=== PATIENT | female | born 1950 | race Caucasian/White ===

== ENCOUNTER 2016-02-08 00:29 | Inpatient (IN) | payer MEDICARE, OTHER ==
[~2016-02-08] VITALS: Ht 168.9 cm; Wt 78.5 kg
[~2016-02-08 00:29] MED LIST: ADVAIR 250/501 DISK INH; ADVIL PM CAPLET1 TAB PO; ALEVE220 MG; ARAVA10 MG PO; AUGMENTIN 500-11 TA1 PO; AUGMENTIN 875-11 TAB PO; BENADRYL25 MG PO; BENZONATATE200 MG PO; BROVANA15 MCG/2 M INH; CELEXA20 MG PO; CITRACAL + D CA1 TAB PO; DURAGESIC1 PATCH .7 TRANSDERM; FLORASTOR250 MG PO; FLOVENT DI50 MCG/DIS; FLUTICASONE PRO16 GM NASAL; GABAPENTIN100 MG PO; HYDROCHLOROTH12.5 M1 PO; HYDROCODON-ACE1 EAC7 PO; HYDROCODONE-APA1 TAB PO; IPRAT-ALBUT 0.5-3 ML UPD; LEVAQUIN500 MG PO; LISINOPRIL10 MG PO; LORTAB 5/500 TA1 TA2 PO; MEDROL DOSE PACK4 MG PO; MUCINEX600 MG PO; NEXIUM40 MG PO; NORVASC10 MG PO; OS-CAL 500+D TA1 TAB PO; PEPCID40 MG PO; PHENERGAN25 M1 PO; PLAQUENIL200 MG PO; PROMETHAZINE W473 M1 PO; PULMICORT0.5 MG/21 UPD; SINGULAIR10 MG PO; SPIRIVA18 MCG INH; STERAPRED DS 1210 MG PO; TYLENOL PM1 TAB PO; VENTOLIN HFA18 GM INH; XARELTO10 MG PO; XARELTO15 MG PO; ZOFRAN4 MG PO
[2016-02-08 01:41] LABS: HEMOGLOBIN 12.2 g/dL (12-16); MCHC 33.9 g/dL (31.0-37.0); MCV 94.5 fL (80.0-100.0); MEAN PLATELET VOLUME 9.1 fL (7.4-10.4); NEUTROPHILS 76.5 % (40-80); RBC 3.81 10x6/uL (4.00-5.40); RDW 15.2 % (11.5-14.5); WBC 7.7 10x3/uL (4.8-10.8)
[2016-02-08 01:46] LABS: PLATELET COUNT 161 10x3/uL (130-400)
[2016-02-08 01:53] LABS: BILIRUBIN - TOTAL 0.7 mg/dL (0.2-1.3); CALCIUM 7.6 mg/dL (8.5-10.1); CARBON DIOXIDE 24.7 mmol/L (21.0-32.0); CREATININE - SERUM 0.9 mg/dL (0.6-1.3); MAGNESIUM - SERUM 1.3 mg/dL (1.8-2.4); POTASSIUM - SERUM 3.7 mmol/L (3.5-5.1)
[2016-02-08 02:52] LABS: APPEARANCE HAZY (CLEAR); BILIRUBIN NEGATIVE (NEGATIVE); COLOR YELLOW (YELLOW); GLUCOSE NEGATIVE (NEGATIVE); KETONE NEGATIVE (NEGATIVE); LEUKOCYTE ESTERASE NEGATIVE (NEGATIVE); NITRITE NEGATIVE (NEGATIVE); PROTEIN NEGATIVE (NEGATIVE); UROBILINOGEN NORMAL (NORMAL)
[2016-02-08 08:21] VITALS: BP 118/77
[2016-02-08] MEDS ORDERED: CELEXA20 MG PO (09:33)
[2016-02-08] MEDS ORDERED: NEURONTIN600 MG PO (09:33)
[2016-02-08] MEDS ORDERED: ARAVA10 MG PO (09:34)
[2016-02-08] MEDS ORDERED: PLAQUENIL200 MG PO (09:34)
[2016-02-08] MEDS ORDERED: NEXIUM40 MG PO (09:35)
[2016-02-08] MEDS ORDERED: VENTOLIN HFA18 GM INH (09:35)
[2016-02-08] MEDS ORDERED: ADVAIR 250/501 DISK INH (09:36)
[2016-02-08] MEDS ORDERED: FLOVENT DI50 MCG/DIS INH (09:36)
[2016-02-08] MEDS ORDERED: HYDROCODONE-APA1 TAB PO (09:37)
[2016-02-08 12:45] VITALS: BP 114/63
--- NOTE | 2016-02-08 14:34 | NUR ---
Patient Name: OLMAN VALDIVIA Admission Status: ER Accout number: [id number] Admission Date: 02-08-2016 : 1950 Admission Diagnosis: Attending: MOHAN Current LOS: 1 Anticipated DC Date: 02-11-2016 Planned Disposition: Home Primary Insurance: MEDICARE A & B Discharge Planning Comments: CM MET WITH PATIENT REGARDING D/C NEEDS AND PLANS. PATIENT STATED SHE LIVES WITH HER SPOUSE (JAYNA) AND HE WILL TRANSPORT HER HOME AT DISCHARGE. PATIENT STATED THERE AR NO STEPS OR STAIRS AT HIS HOME. PATIENT STATED SHE IS INDEPENDENT WITH HER CARE AND HAS A WALKER, CRUTCHES, SHOWER CHAIR, AND BS COMMODE AT HOME IF NEEDED. PATIENTS PCP IS DR. FORRESTER AND HER PHARMACY IS [facility] ON [address]. PATINT STATED SHE DOES NOT NEED HOME HEALTH. CM WILL CONTINUE TO FOLLOW PATIENT WITH DC NEEDS AND PLANS. PCP DR. FORRESTER [facility] ON [address]---[phone] JAYNA (SPOUSE) [phone] Automotive Detailer: Pamela Langston Is the patient Alert and Oriented? Yes 0 * How many steps to enter\exit or inside your home? 0 0 * PCP DR. FORRESTER 0 * Pharmacy [facility] ON [address] 0 * Preadmission Environment Home with Family 0 * ADLs Independent 0 * Equipment Bedside Commode Crutch Shower Chair Walker 0 * List name and contact numbers for known caregivers / representatives who currently or will assist patient after discharge: JAYNA (SPOUSE) [phone] 0 * Community resources currently utilized None 0 * Additional services required to return to the preadmission environment? Yes 0 * Can the patient safely return to the preadmission environment? Yes 0 * Has this patient been hospitalized within the prior 30 days at any hospital? No 0
[2016-02-08 15:48] VITALS: Ht 168.9 cm; Wt 78.5 kg
[2016-02-08 16:30] VITALS: BP 115/63
--- NOTE | 2016-02-08 18:49 | NUR ---
PATIENT IS ALERT AND ORIENTED. ON DROPLET ISOLATION. PATIENT ACCOMANIED BY HUSBANDS. NO NEEDS NOTED.
[2016-02-08 19:00] VITALS: BP 103/60
--- NOTE | 2016-02-08 19:20 | NUR ---
PATIENT SITTING UP IN BED WATCHING TV. NO SIGNS OF DISTRESS NOTED. RESPIRATIONS EVEN AND UNLABORED. DENIES ANY NEEDS AT THIS TIME. BED LOW. CALL LIGHT IN REACH
[2016-02-09] VITALS: BP 113/62
--- NOTE | 2016-02-09 01:15 | NUR ---
PT REMAINS IN CONTACT ISOLATION FOR THE FLU. PT IS UP AD FATMATA AND SELF POSITIONS FOR COMFORT. IV TO LEFT AC SALINE LOCKED. REFUSES SCD'S. CALL LIGHT IN REACH, WILL CONTINUE WITH PLAN OF CARE.
[2016-02-09 04:00] VITALS: BP 105/57
[2016-02-09 05:49] LABS: BASOPHILS 0.3 % (0.0-2.0); EOSINOPHILS 0.3 % (0-7); HEMATOCRIT 31.4 % (36.0-48.0); HEMOGLOBIN 10.7 g/dL (12-16); IMMATURE GRANULOCYTES 0.1 % (0-5); LYMPHOCYTES 15.3 % (15-50); MCH 31.8 pg (26.0-34.0); MCHC 34.1 g/dL (31.0-37.0); MCV 93.5 fL (80.0-100.0); MEAN PLATELET VOLUME 9.5 fL (7.4-10.4); MONOCYTES 9.2 % (2-11); NEUTROPHILS 74.8 % (40-80); RBC 3.36 10x6/uL (4.00-5.40); RDW 14.2 % (11.5-14.5); WBC 8.8 10x3/uL (4.8-10.8)
[2016-02-09 05:56] LABS: PLATELET COUNT 111 10x3/uL (130-400)
[2016-02-09 06:04] LABS: ALBUMIN 2.6 g/dL (3.4-5.0); ALKALINE PHOSPHATASE 146 U/L (46-116); ALT (SGPT) 92 U/L (10-68); BILIRUBIN - TOTAL 0.78 mg/dL (0.2-1.3); CALC OSMOLALITY 272 mosm/kg (275-300); CALCIUM 8.4 mg/dL (8.5-10.1); CARBON DIOXIDE 25.4 mmol/L (21.0-32.0); CHLORIDE - SERUM 105 mmol/L (98-107); CREATININE - SERUM 0.8 mg/dL (0.6-1.3); GLUCOSE 100 mg/dL (74-106); POTASSIUM - SERUM 3.8 mmol/L (3.5-5.1); PROTEIN - SERUM 5.9 g/dL (6.4-8.2); SODIUM 137 mmol/L (136-145); UREA NITROGEN 11 mg/dL (7-18); eGFR NON AFRICAN AMERICAN 76 mL/min (90-120)
--- NOTE | 2016-02-09 08:00 | NUR ---
Received patient up in her room, alert and oriented times three, verbalized name and . Contact isolation precautions in place, droplett precautions. Verbalized no complaints. Respirations easy, afebrile.
[2016-02-09 08:30] VITALS: BP 106/63
[2016-02-09 11:52] VITALS: BP 130/66
--- NOTE | 2016-02-09 13:52 | NUR ---
Up adlib in room, no distress.
[2016-02-09 15:55] VITALS: BP 131/81
--- NOTE | 2016-02-09 20:45 | NUR ---
ASSESSMENT COMPLETED, NO ACUTE DISTRESS NOTED, DENIES NEEDS, REFUSES SCD'S, STATES "THEY MAKE MY LEGS SWELL", SR'S UP X2, CL IN REACH, DROPLET PRECAUTIONS IN PLACE, WILL MONITOR
--- NOTE | 2016-02-09 22:34 | NUR ---
NORCO GIVEN PER MAR ALONG WITH ROUTINE MEDS FOR GENERALIZED PAIN, LEI WELL, DENEIES FURTHER NEEDS, CL IN REACH
[2016-02-10 05:56] LABS: BASOPHILS 0.5 % (0.0-2.0); EOSINOPHILS 3.8 % (0-7); HEMATOCRIT 32.1 % (36.0-48.0); HEMOGLOBIN 10.7 g/dL (12-16); IMMATURE GRANULOCYTES 0.2 % (0-5); MCH 31.5 pg (26.0-34.0); MCHC 33.3 g/dL (31.0-37.0); MCV 94.4 fL (80.0-100.0); MEAN PLATELET VOLUME 10.1 fL (7.4-10.4); MONOCYTES 10.3 % (2-11); NEUTROPHILS 53.2 % (40-80); PLATELET COUNT 132 10x3/uL (130-400); RDW 14.2 % (11.5-14.5)
[2016-02-10 06:14] LABS: WBC 6.3 10x3/uL (4.8-10.8)
[2016-02-10 06:48] LABS: ALBUMIN 2.5 g/dL (3.4-5.0); ALKALINE PHOSPHATASE 125 U/L (46-116); ALT (SGPT) 68 U/L (10-68); CALC OSMOLALITY 280 mosm/kg (275-300); CALCIUM 8.4 mg/dL (8.5-10.1); CARBON DIOXIDE 25.9 mmol/L (21.0-32.0); CHLORIDE - SERUM 107 mmol/L (98-107); CREATININE - SERUM 0.8 mg/dL (0.6-1.3); GLUCOSE 100 mg/dL (74-106); POTASSIUM - SERUM 3.6 mmol/L (3.5-5.1); PROTEIN - SERUM 5.9 g/dL (6.4-8.2); SODIUM 141 mmol/L (136-145); UREA NITROGEN 12 mg/dL (7-18); eGFR NON AFRICAN AMERICAN 76 mL/min (90-120)
[2016-02-10 08:19] VITALS: BP 111/84
[2016-02-10 12:27] VITALS: BP 138/85
[2016-02-10 16:18] VITALS: BP 128/79
[2016-02-10 19:00] VITALS: BP 118/67
--- NOTE | 2016-02-10 20:35 | NUR ---
ASSESSMENT COMPLETED, NO ACUTE DISTRESS NOTED, DENIES NEEDS AT THIS TIME, DROPLET PRECAUTIONS IN PLACE, SR'S UP X2, CL IN REACH, WILL MONITOR
--- NOTE | 2016-02-10 21:27 | NUR ---
HYDROCODONE GIVEN FOR C/O PAIN 08/15 ALONG WITH ROUTINE MEDS, LEI WELL, DENIES OTHER NEEDS AT THIS TIME, CL IN REACH
[2016-02-11] VITALS: BP 122/75
--- NOTE | 2016-02-11 01:38 | NUR ---
RESTING WITH EYES CLOSED, RESP WITH EASE, NO DISTRESS NOTED, DROPLET PRECAUTIONS IN PLACE, CL IN REACH
--- NOTE | 2016-02-11 03:35 | NUR ---
RESTING WITH EYES CLOSED, NO DISTRESS NOTED, DROPLET PRECATTIONS IN PLACE, CL IN REACH
[2016-02-11 04:00] VITALS: BP 125/88
--- NOTE | 2016-02-11 05:57 | NUR ---
UP TO RESTROOM WITH NO PROBLEMS, MEDS GIVEN PER MAR, LEI WELL, CL IN REACH
[2016-02-11 07:09] LABS: EOSINOPHILS 6.5 % (0-7); HEMATOCRIT 32.6 % (36.0-48.0); HEMOGLOBIN 10.9 g/dL (12-16); LYMPHOCYTES 39.9 % (15-50); MCH 31.4 pg (26.0-34.0); MCHC 33.4 g/dL (31.0-37.0); MCV 93.9 fL (80.0-100.0); MEAN PLATELET VOLUME 9.9 fL (7.4-10.4); MONOCYTES 13.5 % (2-11); NEUTROPHILS 39.1 % (40-80); PLATELET COUNT 148 10x3/uL (130-400); RBC 3.47 10x6/uL (4.00-5.40); RDW 14.2 % (11.5-14.5); WBC 4.9 10x3/uL (4.8-10.8)
--- NOTE | 2016-02-11 07:15 | NUR ---
SLEEPING QUIETLY AT PRESENT RESP EVEN AND UNLABORED AT PRESENT.
[2016-02-11 07:33] LABS: ALBUMIN 2.5 g/dL (3.4-5.0); ALKALINE PHOSPHATASE 120 U/L (46-116); ALT (SGPT) 51 U/L (10-68); CALC OSMOLALITY 278 mosm/kg (275-300); CALCIUM 7.8 mg/dL (8.5-10.1); CARBON DIOXIDE 25.9 mmol/L (21.0-32.0); CHLORIDE - SERUM 107 mmol/L (98-107); CREATININE - SERUM 0.7 mg/dL (0.6-1.3); GLUCOSE 89 mg/dL (74-106); POTASSIUM - SERUM 3.6 mmol/L (3.5-5.1); PROTEIN - SERUM 5.4 g/dL (6.4-8.2); SODIUM 141 mmol/L (136-145); UREA NITROGEN 11 mg/dL (7-18); eGFR NON AFRICAN AMERICAN 89 mL/min (90-120)
--- NOTE | 2016-02-11 07:55 | NUR ---
SLEEPING QUIETLY AT PRESENT RESP EVEN AND UNLABORED AT PRESENT RESP EVEN AND UNLABORED AT PRESENT ISOLATION CONT AT PRESENT.
[2016-02-11 07:57] VITALS: BP 143/78
[2016-02-11] MEDS ORDERED: TESSALON PERLE100 MG PO (09:30)
[2016-02-11] MEDS ORDERED: MUCINEX DM ER1 EAC1 PO (09:30)
[2016-02-11] MEDS ORDERED: TAMIFLU75 MG PO (09:32)
[2016-02-11] MEDS ORDERED: LEVAQUIN750 MG PO (09:34)
--- NOTE | 2016-02-11 09:45 | NUR ---
MEDS GIVEN LEI WELL AT PRESENT DENIES ANY NEEDS AT THIS TIME.
--- NOTE | 2016-02-11 11:06 | NUR ---
02/11/2016 11:05 DCP: Discharge Planning Patient Name: OLMAN VALDIVIA Encounter No: [id number] : 1950 Primary Insurance: MEDICARE A & B Anticipated DC Date: 02-11-2016 Planned Disposition: Home DCP follow-up note: DC order rec'd. Patient and family in agreement with discharge plan. No changes to plan. Michelle Lange
--- NOTE | 2016-02-11 11:16 | NUR ---
DISCHARGE INSTRUCTIONS GONE OVER WITH PT DEMONSTRATES UNDERSTANDING AT PRESENT.IV DCD CATH INTACT SITE CLEAN AND DRY WITHOUT REDDNES OR EDEMA NOTED AT PRESENT.
--- NOTE | 2016-02-11 12:30 | NUR ---
LEFT VIA W/C AT PRESENT AT BEDSIDE.
== END 2016-02-11 12:30 | disposition home or self-care (01) | DRG 194 ==
LOC: D.ER 00:29 → D.MS 05:50
PROVIDERS: Emergency Medicine; Family Medicine Adult Medicine; ADMIT Family Medicine
DX: J11.00 Influenza due to unidentified influenza virus with unspecified type of pneumonia (principal); D62 Acute posthemorrhagic anemia; F17.200 Nicotine dependence, unspecified, uncomplicated; Z86.718 Personal history of other venous thrombosis and embolism; Z85.118 Personal history of other malignant neoplasm of bronchus and lung; M06.9 Rheumatoid arthritis, unspecified; G62.9 Polyneuropathy, unspecified; E83.42 Hypomagnesemia; R79.89 Other specified abnormal findings of blood chemistry; J44.9 Chronic obstructive pulmonary disease, unspecified

== ENCOUNTER → 2016-06-08 18:27 | Outpatient (CLI) | payer MEDICARE, OTHER ==
[2016-02-08 15:48] VITALS: BMI 27.5
[~2016-06-08 18:27] MED LIST changes: +FLOVENT DI50 MCG/DIS INH; +LEVAQUIN750 MG PO; +MUCINEX DM ER1 EAC1 PO; +NEURONTIN600 MG PO; +TAMIFLU75 MG PO; +TESSALON PERLE100 MG PO
== END | disposition home or self-care (01) ==
LOC: D.MAMMO 06-01 15:30
DX: Z12.31 Encounter for screening mammogram for malignant neoplasm of breast (principal)

== ENCOUNTER → 2016-06-23 12:26 | Outpatient (CLI) | payer MEDICARE, OTHER ==
[2016-02-08 15:48] VITALS: BMI 27.5
== END | disposition home or self-care (01) ==
LOC: D.RT 06-13 13:00 → D.RAD 06-13 14:00 → D.RT 12:26
DX: J44.9 Chronic obstructive pulmonary disease, unspecified (principal)

== ENCOUNTER → 2016-08-10 09:17 | Day surgery (SDC) | payer MEDICARE, OTHER ==
[~2016-08-10] VITALS: Ht 168.9 cm; Wt 79.1 kg
--- NOTE | ~2016-08-10 | OP ---
PATIENT NAME: OLMAN VALDIVIA MEDICAL RECORD: [id number] :[birth year] LOCATION:D.OPS ADMISSION DATE: SURGEON: GAVIN BENNETT DO OPERATION DATE: 08/10/16 PROCEDURE: Esophagogastroduodenoscopy with biopsies. INDICATION: Heartburn. SCOPE: Olympus video gastroscope. MEDICATIONS: Propofol 190 milligrams IV per anesthesia. ESTIMATED BLOOD LOSS: Minimal. COMPLICATIONS: None. FINDINGS: Informed consent was given. The patient was made comfortable with the above medication. After reaching an adequate level of sedation by slow IV push, the patient was placed on her left side. The endoscope was then advanced under direct visualization through the mouth to the second portion of the duodenum. The upper, middle, and distal thirds of the esophagus appeared normal. At the gastroesophageal junction, there was some very mild evidence of LA class A reflux-induced esophagitis. From this site, a hiatal hernia could be visualized. The endoscope was advanced beyond the gastroesophageal junction into the body of the stomach and retroflexed to view the cardia where the hiatal hernia was also visualized. This was a small sliding type hiatal hernia. The fundus and body of the stomach appeared normal. As the scope was advanced down into the antrum and prepyloric region, there was a subepithelial lesion there with a central depression which looked consistent with pancreatic rest. Biopsies were taken of the site although this will likely be normal surface mucosal biopsies. Random biopsies were taken of the stomach to rule out Helicobacter-pylori and submit for histology. The endoscope was advanced beyond the pylorus, into the duodenum where the bulb, first portion, and second portion of the duodenum appeared normal. Random biopsies were taken from the bulb and second portion of the duodenum regarding the hospital of diarrhea. The specimens will be submitted for histology. The scope was slowly withdrawn from the patient. The patient tolerated the procedure well, and there were no complications. IMPRESSIONS: 1. Reflux esophagitis grade A. 2. Small sliding hiatal hernia. 3. 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 PLAN/RECOMMENDATIONS: 1. Discharge home when recovery parameters are met. 2. Follow-up on biopsy specimen results. 3. Continue current medications including Nexium 40 milligrams daily with as needed Pepcid for breakthrough symptoms. 4. Consider reducing dose of Nexium to 20 milligrams daily if tolerated. 5. Proceed with colonoscopy as scheduled. 6. Further recommendations to follow findings at time of colonoscopy. OPERATIVE REPORT [id number] OLMAN VALDIVIA NATHAN A DO CC: [id number] DICTATION DATE: 08/10/161199 KNIFE GRINDER: AGNES 08/10/16 [address] [facility] [address] [place] [address]
[~2016-08-10 09:17] MED LIST changes: +CALTRATE+D3 PL1 EACH PO; +PRINIVIL20 MG PO
[2016-08-10 09:51] LABS: BASOPHILS 1.5 % (0-2); EOSINOPHILS 14.5 % (0-7); HEMATOCRIT 40.6 % (36.0-48.0); HEMOGLOBIN 13.6 g/dL (12-16); IMMATURE GRANULOCYTES 0.2 % (0-5); LYMPHOCYTES 31.5 % (15-50); MCH 32.8 pg (26.0-34.0); MCHC 33.5 g/dL (31.0-37.0); MCV 97.8 fL (80.0-100.0); MEAN PLATELET VOLUME 10.4 fL (7.4-10.4); MONOCYTES 11.4 % (2-11); NEUTROPHILS 40.9 % (40-80); PLATELET COUNT 177 10x3/uL (130-400); RBC 4.15 10x6/uL (4.00-5.40); RDW 14.1 % (11.5-14.5); WBC 6.6 10x3/uL (4.8-10.8)
[2016-08-10 10:00] LABS: ANION GAP 12.6 mmol/L (8-16); CALCIUM 8.7 mg/dL (8.5-10.1); CARBON DIOXIDE 26.7 mmol/L (21.0-32.0); POTASSIUM - SERUM 4.3 mmol/L (3.5-5.1)
[2016-08-10 10:08] VITALS: Ht 168.9 cm; Wt 79.1 kg
--- NOTE | 2016-08-10 14:30 | NUR ---
1430 PT ESCORTED OUT AND ACCOMPANIED BY HER .
== END | disposition home or self-care (01) ==
LOC: D.OPS 09:17
PROVIDERS: Anesthesiology
DX: K21.9 Gastro-esophageal reflux disease without esophagitis (principal); J44.9 Chronic obstructive pulmonary disease, unspecified; I10 Essential (primary) hypertension; K44.9 Diaphragmatic hernia without obstruction or gangrene; K31.9 Disease of stomach and duodenum, unspecified; Z01.812 Encounter for preprocedural laboratory examination

== ENCOUNTER 2016-08-22 07:09 | Day surgery (SDC) | payer MEDICARE, OTHER ==
[~2016-08-22] VITALS: Ht 168.9 cm; Wt 77.3 kg
--- NOTE | ~2016-08-22 | OP ---
PATIENT NAME: OLMAN VALDIVIA MEDICAL RECORD: [id number] :[birth year] LOCATION:D.OPS ADMISSION DATE: SURGEON: GAVIN BENNETT DO OPERATION DATE: 08/22/16 PROCEDURE: Colonoscopy with hot forceps polypectomy. INDICATIONS FOR PROCEDURE: Diarrhea. SCOPE: Olympus video pediatric colonoscope. MEDICATIONS: Propofol 250 milligrams IV per anesthesia. WITHDRAWAL TIME: 11 minutes. ESTIMATED BLOOD LOSS: Minimal. COMPLICATIONS: None. FINDINGS: Informed consent was given. The patient was made comfortable with the above medication. After reaching an adequate level of sedation by slow IV push, the patient was placed on her left side. A digital rectal examination was performed and was normal. The endoscope was then advanced under direct visualization through the rectum to the cecum with visualization of the appendiceal orifice and ileocecal valve. In the cecum there was a small, benign appearing, flat polyp measuring approximately 4 to 5 millimeters in size. It was removed using hot forceps. There was evidence of mild overton diverticulosis, all consisting of small mouth diverticula. There was no evidence of diverticulitis. Retroflexion was performed in the rectum with visualization of small, nonbleeding internal hemorrhoids. There was a single angiectasia/arteriovenous malformation in the descending colon without bleeding stigmata. The remainder of the colonoscopy was normal. The endoscope was withdrawn from the patient. The patient tolerated the procedure well and there were no complications. IMPRESSIONS: 1. A single cecal polyp which was benign appearing and flat removed with hot forceps. 2. Mild overton-diverticulosis. 3. Small nonbleeding internal hemorrhoids. 4. 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 PLAN/RECOMMENDATIONS: 1. Discharge home when recovery parameters are met. 2. High fiber diet. 3. Continue current medications. 4. Follow up biopsy specimen results. 5. Recall colonoscopy in five years. 6. Notify the clinic if the diarrhea returns. 7. Okay to use as needed Imodium for occasional loose stools. OPERATIVE REPORT [id number] OLMAN VALDIVIA GAVIN BENNETT DO CC: [id number] DICTATION DATE: 08/22/16 1100 FINANCIAL ENGINEER: DM 08/22/16 1132 [facility] [address] [place] [address]
[2016-08-22 08:34] VITALS: BP 94/56; Ht 168.9 cm; Wt 77.3 kg
[2016-08-22 09:30] LABS: BASOPHILS 1.5 % (0-2); EOSINOPHILS 9.8 % (0-7); HEMATOCRIT 40.6 % (36.0-48.0); HEMOGLOBIN 13.6 g/dL (12-16); IMMATURE GRANULOCYTES 0.2 % (0-5); LYMPHOCYTES 27.6 % (15-50); MCH 32.6 pg (26.0-34.0); MCHC 33.5 g/dL (31.0-37.0); MCV 97.4 fL (80.0-100.0); MONOCYTES 14.8 % (2-11); NEUTROPHILS 46.1 % (40-80); PLATELET COUNT 169 10x3/uL (130-400); RBC 4.17 10x6/uL (4.00-5.40); RDW 13.5 % (11.5-14.5); WBC 5.4 10x3/uL (4.8-10.8)
[2016-08-22 09:46] LABS: ANION GAP 15.8 mmol/L (8-16); CALCIUM 8.5 mg/dL (8.5-10.1); CARBON DIOXIDE 23.3 mmol/L (21.0-32.0); CREATININE - SERUM 1.3 mg/dL (0.6-1.3); POTASSIUM - SERUM 4.1 mmol/L (3.5-5.1)
--- NOTE | 2016-08-22 17:02 | NUR ---
1000 FULL LIQUID TRAY PROVIDED 1020 PIV DC W/CATHETER TIP INTACT 1035 PT DC W/ VIA WC ESCORTED OUT TO FRONT OF HOSP.
== END 2016-08-22 10:35 | disposition home or self-care (01) ==
LOC: D.OPS 07:09
PROVIDERS: Anesthesiology
DX: R19.7 Diarrhea, unspecified (principal); D12.0 Benign neoplasm of cecum; K64.8 Other hemorrhoids; I10 Essential (primary) hypertension; K21.9 Gastro-esophageal reflux disease without esophagitis; Z01.812 Encounter for preprocedural laboratory examination

== ENCOUNTER 2016-09-26 12:20 | Emergency (ER) | payer MEDICARE, OTHER ==
[2016-08-22 08:34] VITALS: BMI 27.0
[2016-09-26 13:24] LABS: BASOPHILS 2.5 % (0-2); EOSINOPHILS 13.3 % (0-7); HEMATOCRIT 40.2 % (36.0-48.0); HEMOGLOBIN 13.4 g/dL (12-16); IMMATURE GRANULOCYTES 0.2 % (0-5); LYMPHOCYTES 25.5 % (15-50); MCH 32.8 pg (26.0-34.0); MCHC 33.3 g/dL (31.0-37.0); MCV 98.3 fL (80.0-100.0); MEAN PLATELET VOLUME 10.7 fL (7.4-10.4); NEUTROPHILS 50.5 % (40-80); PLATELET COUNT 172 10x3/uL (130-400); RBC 4.09 10x6/uL (4.00-5.40); RDW 13.5 % (11.5-14.5); WBC 6.5 10x3/uL (4.8-10.8)
[2016-09-26 14:00] LABS: ALBUMIN 3.7 g/dL (3.4-5.0); ANION GAP 13.4 mmol/L (8-16); BILIRUBIN - TOTAL 0.58 mg/dL (0.2-1.3); CALCIUM 8.8 mg/dL (8.5-10.1); CARBON DIOXIDE 27.9 mmol/L (21.0-32.0); CREATININE - SERUM 0.9 mg/dL (0.6-1.3); POTASSIUM - SERUM 5.3 mmol/L (3.5-5.1)
[2016-09-26 15:19] LABS: APPEARANCE CLEAR (CLEAR); BILIRUBIN NEGATIVE (NEGATIVE); COLOR YELLOW (YELLOW); GLUCOSE NEGATIVE (NEGATIVE); KETONE NEGATIVE (NEGATIVE); LEUKOCYTE ESTERASE TRACE (NEGATIVE); NITRITE NEGATIVE (NEGATIVE); PROTEIN NEGATIVE (NEGATIVE); UROBILINOGEN NORMAL (NORMAL)
[2016-09-26 15:20] LABS: BACTERIA FEW /hpf (NONE SEEN); EPITHELIAL CELLS 0-5 /hpf (0-5); RED CELLS - URINE 0-5 /hpf (0-5)
== END 2016-09-26 18:30 | disposition home or self-care (01) ==
LOC: D.ER 12:20
PROVIDERS: Family Medicine
DX: N39.0 Urinary tract infection, site not specified (principal); J44.9 Chronic obstructive pulmonary disease, unspecified; C34.90 Malignant neoplasm of unspecified part of unspecified bronchus or lung

== ENCOUNTER → 2016-11-09 10:43 | Outpatient (CLI) | payer MEDICARE, OTHER ==
[2016-08-22 08:34] VITALS: BMI 27.0
== END | disposition home or self-care (01) ==
LOC: D.RT 10-27 11:30
DX: J44.9 Chronic obstructive pulmonary disease, unspecified (principal)

== ENCOUNTER → 2016-12-01 08:15 | Outpatient (CLI) | payer MEDICARE, OTHER ==
[2016-08-22 08:34] VITALS: BMI 27.0
== END | disposition home or self-care (01) ==
LOC: D.CT 08:15
DX: C34.10 Malignant neoplasm of upper lobe, unspecified bronchus or lung (principal)

== ENCOUNTER 2017-04-06 04:38 | Inpatient (IN) | payer MEDICARE, OTHER ==
[~2017-04-06] VITALS: Ht 168.9 cm; Wt 95.9 kg
--- NOTE | ~2017-04-06 | EC ---
PATIENT:OLMAN VALDIVIA DATE OF SERVICE: 04/06/17 SEX: F MEDICAL RECORD: [id number] DATE OF : [birth year] LOCATION:[place] [address] AGE OF PATIENT: 66 ADMISSION DATE: 04/06/17 REFERRING PHYSICIAN: INTERPRETING PHYSICIAN: SAW VIDAL MD ECHOCARDIOGRAM REPORT ECHO CHARGES 4 ECHO COMPLETE CLINICAL DIAGNOSIS: CHF ECHOCARDIOGRAPHIC MEASUREMENTS (adult normal given) AC root (d.<3.7cm) 3.7 cm LV Septum d (<1.2 cm> 1.5 cm Valve Excursion 2.0 cm LV Septum (systole) 1.6 cm Left Atria (s.<4.0cm> 3.6 cm LVPW d(<1.2cm) 1.8 cm RV (d.<2.3cm) 4.0 cm LVPW (sytole) 1.9 cm LV diastole(<5.6CM) 4.6 cm MV E-F(>70mm/sec) cm LV systole 3.2 cm LVOT Diameter 1.7 cm MV exc.(>10mm) cm Est.ejection fraction (50-75%) % Pericardial Effusion N DOPPLER: LVIT cm/sec A 115 cm/sec E 93.0 cm/sec LA cm/sec RVSP 20 mmHg LVOT 122 cm/sec AOP1/2T m/s Asc. Ao 157 cm/sec RVOT 86 cm/sec RA cm/sec PA 137 cm/sec AV Gradient Peak 9.84 mmHg AV Mean 5.22 mmHg AV Area 1.7 cm MV Gradient Peak 4.67 mmHg MV Mean 2.26 mmHg MV Area cm COMMENTS: Rig Manager: 2 EMILEE GARCIA Career Orientation Teacher: 3 Dr. Cordero TAPE# PACS DATE OF SERVICE: 04/07/2017 Adequate 2D echo, color flow, spectral Doppler, M-mode. Borderline LVH. LV internal dimensions are normal. Wall motion is normal. EF is greater than or equal to 55%. Aortic valve is tricuspid. No evidence of stenosis by Doppler interrogation. Left atrium is normal at 3.6 cm. Mitral valve showed no prolapse. Mild MR. Right-sided chambers grossly normal. Trace TR. ECHOCARDIOGRAM REPORT [id number] OLMAN VALDIVIA TRANSINT:[id number] Voice Confirmation ID: [id number] DOCUMENT ID: [id number] SAW VIDAL MD at 0919 CC: [id number] DICTATION DATE: 04/07/17 1648 RN [facility]: 04/07/17 2341 ADM IN [facility] [address] [place] [id number]
--- NOTE | ~2017-04-06 | OP ---
PATIENT NAME: OLMAN VALDIIVA MEDICAL RECORD: [id number] :[birth year] LOCATION:D.CVI [id number] ADMISSION DATE:04/06/17 SURGEON: JUAN CABRERA MD DATE OF OPERATION: 04/11/2017 SURGEON: Juan Cabrera MD TOW FEEDER: NOVA Anderson OPERATIONS PERFORMED: 1. Right thoracotomy. 2. Resection of giant bulla. 3. Lysis of dense intrapleural adhesions. 4. Mediastinal lymph node biopsy. 5. Bronchoscopy. 6. Removal of subcutaneous port. 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 ANESTHESIA: Double-lumen general endotracheal anesthesia. ESTIMATED BLOOD LOSS: 25 cc. COMPLICATIONS: None. SPECIMENS: 1. Wall of the bulla. 2. Subcarinal lymph node. COMPLICATIONS: None. CONDITION: Stable. DISPOSITION: ICU. OPERATIVE FINDINGS: 1. Dense intrapleural adhesions. No room for the thoracoscope. 2. Giant bulla, as expected densely adherent to the lateral wall with a discrete air leak at the bottom of the bulla that was repaired primarily and then the bulla was resected and the lung was stapled. 3. Lysis of all intrapleural adhesions, freeing the entire right lung with good reexpansion and no air leak under water. 4. Biopsy of 2 large subcarinal lymph nodes that appeared anthracotic. 5. Small air leak on positive pressure ventilation. 6. Removal of subcutaneous port without problem. OPERATIVE INDICATIONS: Continued subcutaneous emphysema after chest tube with a giant bulla from the lateral aspect of the right lung, densely adherent to the chest. OPERATIVE REPORT [id number] OLMAN VALDIVIA DESCRIPTION OF PROCEDURE: The patient was brought to the operating suite, double-lumen endotracheal tube was placed. The patient was turned to the left lateral decubitus position with appropriate padding including axillary roll, right chest was sterilely prepped and draped. Right posterolateral thoracotomy was made. The 6th rib was identified. A portion of the 6th rib was removed. The pleural cavity was entered. Dense adhesions were noted. They were carefully taken down with electrocautery. The bulla was clearly identified. It was freed from the fissure and a discrete air leak site at the bottom of the bulla was identified and repaired with a pledgeted suture. The bulla was removed from the visceral pleural surface as much as possible and a large stapling device was used to close the bulla. The remainder of the adhesions to the diaphragm to free up the lower lobe and at the apex was then taken down and thorough irrigation undertaken. There was no air leak under water. The subcarinal lymph node was removed. Hemostasis was ensured. Two chest tubes were placed, one to the apex and one inferiorly and the lung was reinflated. The lung was closed with 2 muscle layers subcutaneous and subcuticular. Dermabond was placed. A dressing was placed. The patient was turned into the supine position. At that point, the chest was sterilely prepped and draped. The port was identified, incised over the port. The port was grasped and pulled upwardly and the port was removed intact including the attached catheter after removing the Prolene holding the port in place. The port capsule was then excised. Hemostasis was assured. It was irrigated, closed in 2 layers. The patient was then taken to ICU in stable condition. TRANSINT:[id number] Voice Confirmation ID: [id number] DOCUMENT ID: [id number] JUAN CABRERA MD at 1630 CC: ALLISON COLEMAN MD and ROGER GALLEGO MD [id number] DICTATION DATE: 04/11/17 1858 FIRE PATROLLER: 04/11/17 2244 ADM IN [facility] [address] [place] [address]
[2017-04-06 06:05] LABS: INR 1.31 (0.85-1.17); PROTIME 15.8 SECONDS (11.6-15.0)
[2017-04-06 06:06] LABS: BASOPHILS 0.3 % (0-2); D-DIMER-QUANTITATIVE 2.1 ug/mLFEU (0.20-0.54); EOSINOPHILS 0.1 % (0-7); HEMATOCRIT 36.7 % (36.0-48.0); HEMOGLOBIN 12.5 g/dL (12-16); IMMATURE GRANULOCYTES 0.3 % (0-5); LYMPHOCYTES 9.6 % (15-50); MCH 32.6 pg (26.0-34.0); MCHC 34.1 g/dL (31.0-37.0); MCV 95.6 fL (80.0-100.0); MONOCYTES 11.2 % (2-11); NEUTROPHILS 78.5 % (40-80); PLATELET COUNT 188 10x3/uL (130-400); RBC 3.84 10x6/uL (4.00-5.40); RDW 13.8 % (11.5-14.5); WBC 12.4 10x3/uL (4.8-10.8)
[2017-04-06 06:09] LABS: ALBUMIN 3.2 g/dL (3.4-5.0); ALKALINE PHOSPHATASE 160 U/L (46-116); ALT (SGPT) 169 U/L (10-68); BILIRUBIN - TOTAL 1.28 mg/dL (0.2-1.3); CALC OSMOLALITY 277 mosm/kg (275-300); CALCIUM 8.7 mg/dL (8.5-10.1); CHLORIDE - SERUM 101 mmol/L (98-107); CREATININE - SERUM 1.2 mg/dL (0.6-1.3); GLUCOSE 129 mg/dL (74-106); POTASSIUM - SERUM 4.3 mmol/L (3.5-5.1); PROTEIN - SERUM 6.8 g/dL (6.4-8.2); SODIUM 136 mmol/L (136-145); UREA NITROGEN 24 mg/dL (7-18); eGFR NON AFRICAN AMERICAN 48 mL/min (90-120)
[2017-04-06 06:15] LABS: CREATINE KINASE 59 UL (21-215)
[2017-04-06 06:19] LABS: TROPONIN-I < 0.017 ng/mL (0.000-0.060)
[2017-04-06 07:10] LABS: CKMB 0.9 U/L (0.0-3.6); PRO BNP 679 pg/mL (0-125)
[2017-04-06 14:59] VITALS: BP 128/64
[2017-04-06 16:01] VITALS: BP 128/92; BMI 28.8
[2017-04-06 20:59] VITALS: BP 142/79
[2017-04-07 00:36] VITALS: BP 138/77
[2017-04-07 05:08] LABS: ALKALINE PHOSPHATASE 112 U/L (46-116); CALC OSMOLALITY 281 mosm/kg (275-300); CALCIUM 7.8 mg/dL (8.5-10.1); CARBON DIOXIDE 22.2 mmol/L (21.0-32.0); CHLORIDE - SERUM 107 mmol/L (98-107); GLUCOSE 120 mg/dL (74-106); PHOSPHOROUS 2.7 mg/dL (2.5-4.9); POTASSIUM - SERUM 4.2 mmol/L (3.5-5.1); PROTEIN - SERUM 6.3 g/dL (6.4-8.2); SODIUM 139 mmol/L (136-145); UREA NITROGEN 20 mg/dL (7-18)
[2017-04-07 05:10] LABS: ALBUMIN 2.3 g/dL (3.4-5.0); ALT (SGPT) 92 U/L (10-68); CREATININE - SERUM 0.8 mg/dL (0.6-1.3); eGFR NON AFRICAN AMERICAN 76 mL/min (90-120)
[2017-04-07 05:17] VITALS: BP 170/65
[2017-04-07 05:17] LABS: BASOPHILS 0 % (0-2); EOSINOPHILS 0 % (0-7); HEMATOCRIT 32.9 % (36.0-48.0); HEMOGLOBIN 10.8 g/dL (12-16); IMMATURE GRANULOCYTES 0.3 % (0-5); LYMPHOCYTES 7.3 % (15-50); MCHC 32.8 g/dL (31.0-37.0); MEAN PLATELET VOLUME 11.2 fL (7.4-10.4); MONOCYTES 4.1 % (2-11); NEUTROPHILS 88.3 % (40-80); PLATELET COUNT 177 10x3/uL (130-400); RBC 3.37 10x6/uL (4.00-5.40); RDW 13.9 % (11.5-14.5); WBC 11.1 10x3/uL (4.8-10.8)
[2017-04-07 05:19] LABS: MCV 97.6 fL (80.0-100.0)
[2017-04-07 08:39] VITALS: BP 125/67
[2017-04-07 12:36] VITALS: BMI 28.7
[2017-04-07 14:23] VITALS: BP 141/60
[2017-04-07 15:47] LABS: APPEARANCE CLEAR (CLEAR); BILIRUBIN NEGATIVE (NEGATIVE); COLOR YELLOW (YELLOW); GLUCOSE NEGATIVE (NEGATIVE); KETONE SMALL mg/dL (NEGATIVE); NITRITE NEGATIVE (NEGATIVE); PROTEIN NEGATIVE (NEGATIVE); SPECIFIC GRAVITY 1.015 (1.005-1.020); UROBILINOGEN NORMAL (NORMAL)
[2017-04-07 16:53] VITALS: BP 135/69
[2017-04-07 20:38] VITALS: BP 146/80
[2017-04-08 00:18] VITALS: BP 145/80
[2017-04-08 05:48] VITALS: BP 166/107
[2017-04-08 06:01] LABS: BASOPHILS 0 % (0-2); EOSINOPHILS 0 % (0-7); HEMATOCRIT 30.4 % (36.0-48.0); HEMOGLOBIN 10.3 g/dL (12-16); IMMATURE GRANULOCYTES 0.3 % (0-5); LYMPHOCYTES 6.5 % (15-50); MCH 32.4 pg (26.0-34.0); MCHC 33.9 g/dL (31.0-37.0); MCV 95.6 fL (80.0-100.0); MONOCYTES 7.1 % (2-11); NEUTROPHILS 86.1 % (40-80); PLATELET COUNT 194 10x3/uL (130-400); RBC 3.18 10x6/uL (4.00-5.40); RDW 13.5 % (11.5-14.5); WBC 11.8 10x3/uL (4.8-10.8)
[2017-04-08 06:13] LABS: CALC OSMOLALITY 281 mosm/kg (275-300); CALCIUM 7.9 mg/dL (8.5-10.1); CARBON DIOXIDE 20.6 mmol/L (21.0-32.0); CHLORIDE - SERUM 109 mmol/L (98-107); CREATININE - SERUM 0.7 mg/dL (0.6-1.3); GLUCOSE 124 mg/dL (74-106); POTASSIUM - SERUM 4.3 mmol/L (3.5-5.1); SODIUM 139 mmol/L (136-145); UREA NITROGEN 21 mg/dL (7-18); eGFR NON AFRICAN AMERICAN 89 mL/min (90-120)
[2017-04-08 09:08] VITALS: BP 160/90
[2017-04-08 11:52] VITALS: BP 152/87
[2017-04-08 16:32] VITALS: BP 149/83
[2017-04-08 20:00] VITALS: BP 145/82
[2017-04-09] VITALS (23 sets, daily range): BP systolic 131–165; BP diastolic 70–113; Ht 168.9 cm; Wt 95.9 kg
[2017-04-09 07:17] LABS: BASOPHILS 0 % (0-2); EOSINOPHILS 0 % (0-7); HEMATOCRIT 31.6 % (36.0-48.0); HEMOGLOBIN 10.7 g/dL (12-16); IMMATURE GRANULOCYTES 0.7 % (0-5); LYMPHOCYTES 12.6 % (15-50); MCHC 33.9 g/dL (31.0-37.0); MCV 94.6 fL (80.0-100.0); MEAN PLATELET VOLUME 11.2 fL (7.4-10.4); MONOCYTES 7.4 % (2-11); NEUTROPHILS 79.3 % (40-80); PLATELET COUNT 212 10x3/uL (130-400); RBC 3.34 10x6/uL (4.00-5.40); RDW 13.6 % (11.5-14.5)
[2017-04-09 07:23] LABS: WBC 7.5 10x3/uL (4.8-10.8)
[2017-04-09 07:37] LABS: CALC OSMOLALITY 281 mosm/kg (275-300); CALCIUM 7.8 mg/dL (8.5-10.1); CARBON DIOXIDE 21.5 mmol/L (21.0-32.0); CHLORIDE - SERUM 109 mmol/L (98-107); CREATININE - SERUM 0.7 mg/dL (0.6-1.3); GLUCOSE 118 mg/dL (74-106); POTASSIUM - SERUM 5.1 mmol/L (3.5-5.1); SODIUM 139 mmol/L (136-145); UREA NITROGEN 21 mg/dL (7-18); eGFR NON AFRICAN AMERICAN 89 mL/min (90-120)
[2017-04-10] VITALS (23 sets, daily range): BP systolic 123–163; BP diastolic 72–98
[2017-04-10 04:49] LABS: BASOPHILS 0 % (0-2); EOSINOPHILS 0 % (0-7); HEMATOCRIT 32.5 % (36.0-48.0); HEMOGLOBIN 11.1 g/dL (12-16); IMMATURE GRANULOCYTES 1.4 % (0-5); LYMPHOCYTES 14.9 % (15-50); MCH 32.2 pg (26.0-34.0); MCHC 34.2 g/dL (31.0-37.0); MCV 94.2 fL (80.0-100.0); MEAN PLATELET VOLUME 10.6 fL (7.4-10.4); MONOCYTES 12.3 % (2-11); NEUTROPHILS 71.4 % (40-80); PLATELET COUNT 218 10x3/uL (130-400); RBC 3.45 10x6/uL (4.00-5.40); RDW 13.5 % (11.5-14.5); WBC 7.7 10x3/uL (4.8-10.8)
[2017-04-10 05:10] LABS: CALC OSMOLALITY 281 mosm/kg (275-300); CALCIUM 8.1 mg/dL (8.5-10.1); CARBON DIOXIDE 24.4 mmol/L (21.0-32.0); CHLORIDE - SERUM 107 mmol/L (98-107); CREATININE - SERUM 0.7 mg/dL (0.6-1.3); GLUCOSE 123 mg/dL (74-106); SODIUM 140 mmol/L (136-145); UREA NITROGEN 19 mg/dL (7-18); eGFR NON AFRICAN AMERICAN 89 mL/min (90-120)
[2017-04-10 05:19] LABS: POTASSIUM - SERUM 4.3 mmol/L (3.5-5.1)
[2017-04-10 18:07] LABS: HEMATOCRIT 35.2 % (36.0-48.0); HEMOGLOBIN 12.1 g/dL (12-16); MCH 32.5 pg (26.0-34.0); MCHC 34.4 g/dL (31.0-37.0); MCV 94.6 fL (80.0-100.0); MEAN PLATELET VOLUME 10.9 fL (7.4-10.4); RBC 3.72 10x6/uL (4.00-5.40); RDW 13.6 % (11.5-14.5)
[2017-04-10 18:12] LABS: WBC 10.1 10x3/uL (4.8-10.8)
[2017-04-10 18:22] LABS: APTT 29.9 SECONDS (22.8-39.4); INR 1.08 (0.85-1.17); PROTIME 13.6 SECONDS (11.6-15.0)
[2017-04-10 18:32] LABS: APPEARANCE CLEAR (CLEAR); COLOR STRAW (YELLOW)
[2017-04-10 18:45] LABS: ALBUMIN 2.4 g/dL (3.4-5.0); ALKALINE PHOSPHATASE 72 U/L (46-116); ALT (SGPT) 38 U/L (10-68); CALC OSMOLALITY 281 mosm/kg (275-300); CALCIUM 8.9 mg/dL (8.5-10.1); CARBON DIOXIDE 22.7 mmol/L (21.0-32.0); CHLORIDE - SERUM 106 mmol/L (98-107); CREATININE - SERUM 0.8 mg/dL (0.6-1.3); GLUCOSE 113 mg/dL (74-106); POTASSIUM - SERUM 4.1 mmol/L (3.5-5.1); PROTEIN - SERUM 6.2 g/dL (6.4-8.2); SODIUM 139 mmol/L (136-145); UREA NITROGEN 20 mg/dL (7-18); eGFR NON AFRICAN AMERICAN 76 mL/min (90-120)
[2017-04-10 18:48] LABS: BILIRUBIN NEGATIVE (NEGATIVE); GLUCOSE NEGATIVE (NEGATIVE); KETONE NEGATIVE (NEGATIVE); NITRITE NEGATIVE (NEGATIVE); PROTEIN NEGATIVE (NEGATIVE); UROBILINOGEN NORMAL (NORMAL)
[2017-04-11] VITALS (34 sets, daily range): BP systolic 84–166; BP diastolic 41–97
[2017-04-11 06:24] LABS: BASOPHILS 0.2 % (0-2); EOSINOPHILS 0 % (0-7); HEMATOCRIT 36.1 % (36.0-48.0); HEMOGLOBIN 12.3 g/dL (12-16); IMMATURE GRANULOCYTES 2.4 % (0-5); LYMPHOCYTES 21.3 % (15-50); MCH 32.2 pg (26.0-34.0); MCHC 34.1 g/dL (31.0-37.0); MCV 94.5 fL (80.0-100.0); MEAN PLATELET VOLUME 10.7 fL (7.4-10.4); MONOCYTES 10.2 % (2-11); NEUTROPHILS 65.9 % (40-80); PLATELET COUNT 247 10x3/uL (130-400); RBC 3.82 10x6/uL (4.00-5.40); RDW 13.7 % (11.5-14.5); WBC 8.8 10x3/uL (4.8-10.8)
[2017-04-11 06:39] LABS: CALC OSMOLALITY 278 mosm/kg (275-300); CALCIUM 8.9 mg/dL (8.5-10.1); CARBON DIOXIDE 25.2 mmol/L (21.0-32.0); CHLORIDE - SERUM 104 mmol/L (98-107); CREATININE - SERUM 0.8 mg/dL (0.6-1.3); GLUCOSE 116 mg/dL (74-106); POTASSIUM - SERUM 3.8 mmol/L (3.5-5.1); SODIUM 138 mmol/L (136-145); UREA NITROGEN 19 mg/dL (7-18); eGFR NON AFRICAN AMERICAN 76 mL/min (90-120)
[2017-04-12] VITALS (51 sets, daily range): BP systolic 80–156; BP diastolic 36–111
[2017-04-12 06:15] LABS: BASOPHILS 0 % (0-2); EOSINOPHILS 0 % (0-7); IMMATURE GRANULOCYTES 1.9 % (0-5); LYMPHOCYTES 13.3 % (15-50); MCH 31.4 pg (26.0-34.0); MCHC 32.7 g/dL (31.0-37.0); MCV 96.2 fL (80.0-100.0); MONOCYTES 7.1 % (2-11); NEUTROPHILS 77.7 % (40-80); PLATELET COUNT 198 10x3/uL (130-400); RBC 3.12 10x6/uL (4.00-5.40); RDW 13.6 % (11.5-14.5); WBC 9.8 10x3/uL (4.8-10.8)
[2017-04-12 06:18] LABS: HEMOGLOBIN 9.8 g/dL (12-16)
[2017-04-12 06:36] LABS: ALBUMIN 1.8 g/dL (3.4-5.0); ALKALINE PHOSPHATASE 42 U/L (46-116); ALT (SGPT) 25 U/L (10-68); BILIRUBIN - TOTAL 0.54 mg/dL (0.2-1.3); CALC OSMOLALITY 285 mosm/kg (275-300); CALCIUM 8.4 mg/dL (8.5-10.1); CARBON DIOXIDE 25.3 mmol/L (21.0-32.0); CHLORIDE - SERUM 108 mmol/L (98-107); CREATININE - SERUM 0.7 mg/dL (0.6-1.3); GLUCOSE 106 mg/dL (74-106); POTASSIUM - SERUM 4.1 mmol/L (3.5-5.1); PROTEIN - SERUM 4.5 g/dL (6.4-8.2); SODIUM 142 mmol/L (136-145); UREA NITROGEN 20 mg/dL (7-18); eGFR NON AFRICAN AMERICAN 89 mL/min (90-120)
[2017-04-13] VITALS (26 sets, daily range): BP systolic 86–143; BP diastolic 45–82
[2017-04-13 05:55] LABS: HEMATOCRIT 28.7 % (36.0-48.0); HEMOGLOBIN 9.6 g/dL (12-16); MCHC 33.4 g/dL (31.0-37.0); MCV 95.7 fL (80.0-100.0); MEAN PLATELET VOLUME 10.7 fL (7.4-10.4); RDW 13.6 % (11.5-14.5); WBC 10.3 10x3/uL (4.8-10.8)
[2017-04-13 06:13] LABS: ALBUMIN 1.9 g/dL (3.4-5.0); ALKALINE PHOSPHATASE 44 U/L (46-116); ALT (SGPT) 24 U/L (10-68); BILIRUBIN - TOTAL 0.53 mg/dL (0.2-1.3); CALC OSMOLALITY 284 mosm/kg (275-300); CALCIUM 8.3 mg/dL (8.5-10.1); CARBON DIOXIDE 29.1 mmol/L (21.0-32.0); CHLORIDE - SERUM 107 mmol/L (98-107); CREATININE - SERUM 0.7 mg/dL (0.6-1.3); GLUCOSE 141 mg/dL (74-106); PROTEIN - SERUM 4.8 g/dL (6.4-8.2); SODIUM 141 mmol/L (136-145); UREA NITROGEN 18 mg/dL (7-18); eGFR NON AFRICAN AMERICAN 89 mL/min (90-120)
[2017-04-14] VITALS (28 sets, daily range): BP systolic 73–157; BP diastolic 32–96
[2017-04-14 05:08] LABS: HEMOGLOBIN 9.3 g/dL (12-16); MCH 31.8 pg (26.0-34.0); MCHC 33.2 g/dL (31.0-37.0); MCV 95.9 fL (80.0-100.0); MEAN PLATELET VOLUME 10.3 fL (7.4-10.4); RBC 2.92 10x6/uL (4.00-5.40); RDW 13.7 % (11.5-14.5); WBC 10.8 10x3/uL (4.8-10.8)
[2017-04-14 05:32] LABS: ALBUMIN 1.8 g/dL (3.4-5.0); ALKALINE PHOSPHATASE 42 U/L (46-116); ALT (SGPT) 27 U/L (10-68); CALC OSMOLALITY 284 mosm/kg (275-300); CALCIUM 8.2 mg/dL (8.5-10.1); CARBON DIOXIDE 28.4 mmol/L (21.0-32.0); CHLORIDE - SERUM 107 mmol/L (98-107); CREATININE - SERUM 0.6 mg/dL (0.6-1.3); GLUCOSE 94 mg/dL (74-106); POTASSIUM - SERUM 3.5 mmol/L (3.5-5.1); PROTEIN - SERUM 4.8 g/dL (6.4-8.2); SODIUM 142 mmol/L (136-145); UREA NITROGEN 18 mg/dL (7-18); eGFR NON AFRICAN AMERICAN > 90 mL/min (90-120)
[2017-04-15] VITALS (22 sets, daily range): BP systolic 99–160; BP diastolic 48–109
[2017-04-16] VITALS (13 sets, daily range): BP systolic 120–156; BP diastolic 60–87
[2017-04-16 05:08] LABS: BASOPHILS 0.1 % (0-2); EOSINOPHILS 1.9 % (0-7); HEMATOCRIT 28.4 % (36.0-48.0); HEMOGLOBIN 9.4 g/dL (12-16); IMMATURE GRANULOCYTES 0.6 % (0-5); LYMPHOCYTES 20.7 % (15-50); MCH 31.8 pg (26.0-34.0); MCHC 33.1 g/dL (31.0-37.0); MCV 95.9 fL (80.0-100.0); MEAN PLATELET VOLUME 9.9 fL (7.4-10.4); MONOCYTES 11.2 % (2-11); NEUTROPHILS 65.5 % (40-80); PLATELET COUNT 212 10x3/uL (130-400); RBC 2.96 10x6/uL (4.00-5.40); RDW 13.8 % (11.5-14.5); WBC 11.6 10x3/uL (4.8-10.8)
[2017-04-16 05:20] LABS: CALC OSMOLALITY 276 mosm/kg (275-300); CALCIUM 8.7 mg/dL (8.5-10.1); CARBON DIOXIDE 32.9 mmol/L (21.0-32.0); CHLORIDE - SERUM 104 mmol/L (98-107); CREATININE - SERUM 0.7 mg/dL (0.6-1.3); GLUCOSE 93 mg/dL (74-106); SODIUM 138 mmol/L (136-145); UREA NITROGEN 16 mg/dL (7-18); eGFR NON AFRICAN AMERICAN 89 mL/min (90-120)
[2017-04-16] MEDS ORDERED: MEDROL DOSE PACK4 MG PO (14:48)
== END 2017-04-16 16:17 | disposition home or self-care (01) | DRG 163 ==
LOC: D.ER 04:38 → D.EDHOLD 07:23 → D.CVICU 07:23 → D.M2 07:23 → D.CVICU 04-09 09:24
PROVIDERS: Family Medicine; Internal Medicine Nephrology; Internal Medicine Pulmonary Disease; Specialist; Thoracic Surgery (Cardiothoracic Vascular Surgery)
PROC: 0W9930Z Drainage of Right Pleural Cavity with Drainage Device, Percutaneous Approach (ICD-10-PCS; 2017-04-06)
PROC: 0W9930Z Drainage of Right Pleural Cavity with Drainage Device, Percutaneous Approach (ICD-10-PCS; principal; 2017-04-06 15:13)
PROC: 0W990ZZ Drainage of Right Pleural Cavity, Open Approach (ICD-10-PCS; 2017-04-09)
PROC: 0BBF0ZZ Excision of Right Lower Lung Lobe, Open Approach (ICD-10-PCS; 2017-04-11)
PROC: 07B70ZX Excision of Thorax Lymphatic, Open Approach, Diagnostic (ICD-10-PCS; 2017-04-11)
DX: J93.11 Primary spontaneous pneumothorax (principal); J96.21 Acute and chronic respiratory failure with hypoxia; J18.9 Pneumonia, unspecified organism; N17.9 Acute kidney failure, unspecified; J44.1 Chronic obstructive pulmonary disease with (acute) exacerbation; J44.0 Chronic obstructive pulmonary disease with (acute) lower respiratory infection; J98.11 Atelectasis; J20.9 Acute bronchitis, unspecified; J30.9 Allergic rhinitis, unspecified; K21.9 Gastro-esophageal reflux disease without esophagitis; I10 Essential (primary) hypertension; M06.9 Rheumatoid arthritis, unspecified; R79.89 Other specified abnormal findings of blood chemistry; D35.02 Benign neoplasm of left adrenal gland; J98.2 Interstitial emphysema; Z85.118 Personal history of other malignant neoplasm of bronchus and lung; Z86.718 Personal history of other venous thrombosis and embolism; Z87.891 Personal history of nicotine dependence; D50.9 Iron deficiency anemia, unspecified

== ENCOUNTER → 2017-04-28 11:59 | Outpatient (CLI) | payer MEDICARE, OTHER ==
[2017-04-09 11:52] VITALS: BMI 28.7
== END | disposition home or self-care (01) ==
LOC: D.RAD 11:59
DX: J93.9 Pneumothorax, unspecified (principal)

== ENCOUNTER → 2017-06-02 16:30 | Outpatient (CLI) | payer MEDICARE, OTHER ==
[2017-04-09 11:52] VITALS: BMI 28.7
== END | disposition home or self-care (01) ==
LOC: D.RAD 15:15
DX: J93.9 Pneumothorax, unspecified (principal)

== ENCOUNTER → 2017-11-01 12:31 | Outpatient (CLI) | payer MEDICARE, OTHER ==
[2017-04-09 11:52] VITALS: BMI 28.7
== END | disposition home or self-care (01) ==
LOC: D.RT 07-10 10:00 → D.RAD 07-10 11:00 → D.RT 12:31
DX: J44.9 Chronic obstructive pulmonary disease, unspecified (principal)

== ENCOUNTER 2018-12-28 08:00 | Outpatient (CLI) | payer MEDICARE, OTHER ==
[2017-04-09 11:52] VITALS: BMI 28.7
== END 2018-12-28 23:59 | disposition home or self-care (01) ==
LOC: D.MAMMO 08:00
PROVIDERS: ATTEND Family Medicine
DX: Z12.31 Encounter for screening mammogram for malignant neoplasm of breast (principal)

== ENCOUNTER → 2019-03-04 09:19 | Outpatient (CLI) | payer MEDICARE, OTHER ==
[2017-04-09 11:52] VITALS: BMI 28.7
== END | disposition home or self-care (01) ==
LOC: D.RAD 09:19 → D.RT 10:00
PROVIDERS: ATTEND Internal Medicine Pulmonary Disease
DX: J44.9 Chronic obstructive pulmonary disease, unspecified (principal)

== ENCOUNTER → 2019-03-07 10:42 | Outpatient (CLI) | payer MEDICARE, OTHER ==
[2017-04-09 11:52] VITALS: BMI 28.7
== END | disposition home or self-care (01) ==
LOC: D.RAD 10:42
PROVIDERS: ATTEND Podiatrist
DX: S92.322A Displaced fracture of second metatarsal bone, left foot, initial encounter for closed fracture (principal); S92.332A Displaced fracture of third metatarsal bone, left foot, initial encounter for closed fracture

== ENCOUNTER → 2019-10-07 19:54 | Outpatient (CLI) | payer MEDICARE, OTHER ==
[2017-04-09 11:52] VITALS: BMI 28.7
[2019-10-07 20:40] LABS: BASOPHILS 0.8 % (0-2); EOSINOPHILS 7.8 % (0-7); HEMATOCRIT 35.3 % (36.0-48.0); HEMOGLOBIN 11.5 g/dL (12-16); LYMPHOCYTES 22.3 % (15-50); MCH 30.6 pg (26.0-34.0); MCHC 32.6 g/dL (31.0-37.0); MCV 93.9 fL (80.0-100.0); MEAN PLATELET VOLUME 9.6 fL (7.4-10.4); MONOCYTES 2.9 % (2-11); NEUTROPHILS 65.2 % (40-80); RBC 3.76 10x6/uL (4.00-5.40); RDW 14.1 % (11.5-14.5); WBC 10.6 10x3/uL (4.8-10.8)
[2019-10-07 20:44] LABS: CREATININE - SERUM 1.4 mg/dL (0.6-1.3)
[2019-10-07 20:46] LABS: PLATELET COUNT 468 10x3/uL (130-400)
== END | disposition home or self-care (01) ==
LOC: D.LABREF 19:54
PROVIDERS: ATTEND Internal Medicine Pulmonary Disease
DX: R04.2 Hemoptysis (principal)

== ENCOUNTER → 2019-10-08 10:22 | Outpatient (CLI) | payer MEDICARE, OTHER ==
[2017-04-09 11:52] VITALS: BMI 28.7
== END | disposition home or self-care (01) ==
LOC: D.CT 10:22
PROVIDERS: ATTEND Internal Medicine Pulmonary Disease
DX: R04.2 Hemoptysis (principal); J42 Unspecified chronic bronchitis

== ENCOUNTER 2020-06-20 12:28 | Emergency (ER) | payer MEDICARE ==
[~2020-06-20] VITALS: Ht 168.9 cm; Wt 74.4 kg
[2020-06-20 13:27] VITALS: BP 148/85; Ht 168.9 cm; Wt 74.4 kg
== END 2020-06-20 16:52 | disposition home or self-care (01) ==
LOC: D.ER 12:28
DX: M54.5 Low back pain (principal); G89.29 Other chronic pain; I10 Essential (primary) hypertension; G62.9 Polyneuropathy, unspecified; J44.9 Chronic obstructive pulmonary disease, unspecified